=== PATIENT | female | born 1950 | race American Indian/Alaskan Native ===

== ENCOUNTER 2018-01-12 23:21 | Emergency (ER) | payer BC ==
--- NOTE | 2018-01-13 05:01 | Emergency Department Report ---
ED General Adult HPI - General Chief complaint: Urogenital-Female Stated complaint: POSS HBP Time Seen by Provider: 01/13/18 04:55 Source: patient Mode of arrival: Ambulatory Limitations: No Limitations - History of Present Illness Initial comments: Chief complaint, acute stress 67-year-old woman presents with initial complaint of elevated blood pressure as well as a vaginal discharge, but once she was interviewed by myself, describes acute and intensifying situational stress, with multiple family members who are ill and require her care or assistance, which has been a source of worsening stress, causing her to lose sleep, did become agitated, and had difficulty completing her work duties as well. She believes that this has raised her blood pressure, although she has no prior history of hypertension, and takes no routine medication for this or other illnesses. She has no history of chest pain, no tightness, no shortness of breath, no abdominal pain, no nausea or vomiting, no headache, and no focal neurologic deficit. During course of patient's triage while waiting for physician examination, patient became somewhat more confrontational, refusing initial protocol based laboratory evaluation for patient's initial complaint, expressing that she felt that she needed to speak with a physician before she had any medications or laboratory procedures performed. Patient was placed in hallway, where she could be observed, awaiting time where she could be evaluated by myself. At time of my evaluation, patient was resting comfortably, reading from the bottle , no acute distress, and when she was ultimately interviewed, gives history of acute distress, with her impression that she needed time off from work in order for her to get some rest and in order to help make arrangements to enlist other family members to assist in care of ill relatives. When questioned about her complaint of vaginal discharge, she reports that this has ceased, and she declined placement and room or gynecologic evaluation. Past medical history is one of good general health, although she did have a significant allergic reaction several years ago, which required intravenous steroids, which also caused an additional significant reaction, resulting in hospital stay. Other than that, she has been in good general health. - Related Data Allergies Allergy/AdvReac Type Severity Reaction Status Date / Time acetaminophen [From Percocet] Allergy Hives Verified 01/13/18 00:24 codeine Allergy Hives Verified 01/13/18 00:24 Influenza Virus Vaccines Allergy Anaphylaxis Verified 01/13/18 00:24 oxycodone [From Percocet] Allergy Hives Verified 01/13/18 00:24 prednisone Allergy Anaphylaxis Verified 01/13/18 00:24 aspirin AdvReac Hives Verified 01/13/18 00:24 ED Review of Systems ROS: Stated complaint: POSS HBP Other details as noted in HPI Comment: All other systems reviewed and negative Constitutional: malaise. denies: chills, diaphoresis, fever, weakness ENT: denies: throat pain, congestion Respiratory: denies: cough, shortness of breath Cardiovascular: denies: chest pain, dyspnea on exertion, edema, syncope, paroxysmal nocturnal dyspnea Endocrine: no symptoms reported Gastrointestinal: denies: abdominal pain, nausea, diarrhea Genitourinary: denies: urgency, dysuria, frequency Musculoskeletal: denies: back pain, joint swelling, arthralgia Skin: denies: rash, lesions Neurological: denies: headache, weakness, paresthesias Psychiatric: anxiety, other (stress, fatigue, poor sleep). denies: auditory hallucinations, visual hallucinations, suicidal thoughts Hematological/Lymphatic: denies: easy bleeding, easy bruising ED Past Medical Hx - Past Medical History Previous Medical History?: No - Surgical History Past Surgical History?: No Additional Surgical History: ectopic - Social History Smoking Status: Never Smoker Substance Use Type: None ED Physical Exam - General Limitations: No Limitations General appearance: alert, in no apparent distress - Head Head exam: Present: atraumatic, normocephalic - Eye Eye exam: Present: PERRL - ENT ENT exam: Present: mucous membranes moist - Neck Neck exam: Present: normal inspection, full ROM. Absent: tenderness - Respiratory Respiratory exam: Present: normal lung sounds bilaterally - Cardiovascular Cardiovascular Exam: Present: regular rate, normal heart sounds - GI/Abdominal GI/Abdominal exam: Present: soft. Absent: tenderness, guarding - Rectal Rectal exam: Present: deferred - Extremities Exam Extremities exam: Present: normal inspection, full ROM. Absent: tenderness - Back Exam Back exam: Present: normal inspection, full ROM. Absent: tenderness, CVA tenderness (R), CVA tenderness (L), paraspinal tenderness, vertebral tenderness - Neurological Exam Neurological exam: Present: alert, oriented X3, CN II-XII intact, other - Psychiatric Psychiatric exam: Present: agitated (somewhat anxious, reading a Bible and a conspicuous fashion while waiting for examination, particularly as staff passed by). Absent: homicidal ideation, suicidal ideation - Skin Skin exam: Present: warm, dry. Absent: rash, petechiae, pallor, ecchymosis ED Course Vital Signs 01/12/18 01/13/18 23:45 05:05 Temperature 36.9 C Pulse Rate 95 H 85 Respiratory 16 18 Rate Blood Pressure 154/104 Blood Pressure 155/86 [Left] O2 Sat by Pulse 97 100 Oximetry - Reevaluation(s) Reevaluation #1: 01/13/18 05:06 Repeat blood pressure 155/86, patient is resting comfortably, no acute distress , denies acute symptoms. ED Medical Decision Making - EKG Data EKG shows normal: sinus rhythm, axis, intervals (QT interval normal at 426 ms corrected), QRS complexes, ST-T waves Rate: normal (89 bpm) - Medical Decision Making Patient comes with somewhat unorthodox presentation, but primarily has been suffering from undue situational stress, which has been intensifying, causing her to feel that she is unable to carry out her work duties, due to fatigue, stress, and a sense of worsening malaise. I find no acute physical abnormalities, although her blood pressure is mildly elevated, but I don't feel that laboratory testing would be generally beneficial given her stress related symptoms, and she clearly has a normal neurologic evaluation, and CT scanning would not be indicated as well, although these were part of her initial protocol. I'm comfortable giving patient the day off, to allow her to arrangements to offload some of her chores with other family members, and to make arrangements for more suitable working arrangements so that she can have follow-up with her other medical appointment, which has been a concern of hers. 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 Critical Care Time: No Critical care attestation.: If time is entered above; I have spent that time in minutes in the direct care of this critically ill patient, excluding procedure time. ED Disposition Clinical Impression: Adult situational stress disorder Disposition: DC-01 TO HOME OR SELFCARE Is pt being admited?: No Does the pt Need Aspirin: No Condition: Stable Instructions: Stress (ED) Referrals: HAILEY CURRAN MD [Primary Care Provider] - 3-5 Days Forms: Work/School Release Form(ED) Time of Disposition: 05:09
[2018-01-13 05:06] VITALS: BP 155/86
== END 2018-01-13 05:20 | disposition home or self-care (01) ==
LOC: ED 23:21
DX: F43.0 Acute stress reaction (principal); Z88.5 Allergy status to narcotic agent; Z88.6 Allergy status to analgesic agent; Z88.7 Allergy status to serum and vaccine; Z88.8 Allergy status to other drugs, medicaments and biological substances
CPT/HCPCS: 93005; 93010; 99283

== ENCOUNTER 2018-01-13 05:44 | Emergency (ER) | payer BC | END 2018-01-13 05:45 | disposition left against medical advice (07) | LOC: ED 05:44 | DX: Z02.89 Encounter for other administrative examinations (principal); Z53.21 Procedure and treatment not carried out due to patient leaving prior to being seen by health care provider ==

== ENCOUNTER 2018-01-13 12:37 | Emergency (ER) | payer BC ==
[2018-01-13] MEDS ORDERED: ATIVAN PO ONE (12:59)
[2018-01-13] MEDS ORDERED: CATAPRES PO ONE (13:00)
--- NOTE | 2018-01-13 13:41 | Emergency Department Report ---
HPI - General Chief Complaint: Abdominal Pain Time Seen by Provider: 01/13/18 12:58 - HPI HPI: The patient is a 67-year-old female presents for evaluation of abdominal pain and mental health. The patient reports insidious onset of intermittent mild crampy lower abdominal, vaginal itching, and thick white vaginal discharge for the past couple of day. She also shares that she has experienced decreased sleep and decreased appetite for the past 3 days, she submits secondary to family and living stressors at home. She also admits to episode of paranoia last night that someone was following her while out at a restaurant. The patient denies fever, headache, unexplained weight loss or weight gain, heat or cold intolerance, skin, hair, or nail changes, neuro deficits, suicidal ideation , homicidal ideations, or auditory or visual hallucinations. ED Past Medical Hx - Surgical History Additional Surgical History: ectopic - Social History Smoking Status: Never Smoker Substance Use Type: None - Medications Home Medications: Home Medications Medication Instructions Recorded Confirmed Last Taken Type Hydrochlorothiazide [HCTZ] 25 mg PO QDAY #30 tablet 01/13/18 Unknown Rx Miconazole/Cleanser 17 On Wipe 1 each VG QDAY #1 kit 01/13/18 Unknown Rx [Monistat 3 Combo Pack] metroNIDAZOLE [Flagyl] 500 mg PO Q12HR #14 tab 01/13/18 Unknown Rx ED Review of Systems ROS: Stated complaint: AMS Other details as noted in HPI Constitutional: denies: fever ENT: denies: throat or neck pain Respiratory: denies: cough, shortness of breath Cardiovascular: denies: chest pain Endocrine: denies unexplained weight loss or gain Gastrointestinal: reports abdominal pain, nausea Genitourinary: denies: dysuria; reports vaginal discharge Musculoskeletal: denies: leg swelling Skin: denies: rash Neurological: denies: headache Hematological/Lymphatic: denies: easy bleeding or easy bruising Psych: reports worrying and paranoia denies sadness or hopelessness Physical Exam - Physical Exam Vital Signs: BP 143/70 HR 85 RR 16 Pulse ox 97% Physical Exam: General: well-nourished, well-developed, no acute distress Head: Normocephalic, atraumatic Eyes: normal sclera ENT: Mucous membranes are pink and moist Neck: trachea midline, neck supple, No neck stiffness, no cervical adenopathy Respiratory: Breath sounds equal bilaterally, no wheezing, rales, or rhonchi Cardio: S1 and S2 present, no murmurs, rubs, gallops, capillary refill is brisk Abdomen: Normoactive bowel sounds, soft abdomen, no rigidity, no guarding or rebound tenderness Chest WALL/Back: No tenderness to palpation of the chest wall, no CVA tenderness with percussion Musc: No pitting edema Skin: No rash Neuro: Alert and oriented 4, no cognitive deficit, no facial drooping, normal speech, no gross sensation or motor deficits, competent to make medical decisions Psych: Normal affect, normal behavior, normal insight, anxious mood ED Medical Decision Making - Medical Decision Making The patient was seen and examined by myself. The patient is placed on a clinical research monitor and continuous pulse ox. On initial evaluation, the patient was found to be in no distress. Labs are obtained. Urinalysis and urine drug screen are grossly unremarkable. The patient refused blood draw. Mental health is consulted. Mental health attempted to evaluate the patient she refused. The patient was reevaluated by myself and she remains alert oriented 4, able to understand and verbalize family and staff concerns, and negative for signs of risk of harm to herself or others or inability to care for herself. Assess, the patient is competent and able to make medical decisions/refused further medical care or evaluation. The patient is informed of risks of refusal of further care/ stabilization and signing out AGAINST MEDICAL ADVICE, including potential risk of increased morbidity and/or , versus benefits of further treatment and stablization. The patient is informed of treatment options and outside facility options for futher treatment and definitive stablization. The patient is able to verbalize their treatment options and benefits of treatments, versus risks of refusal of further care. The patient is competent to make medical decisions and signed out AGAINST MEDICAL ADVICE. Critical care attestation.: If time is entered above; I have spent that time in minutes in the direct care of this critically ill patient, excluding procedure time. ED Disposition Clinical Impression: Adult situational stress disorder, Acute stress reaction Vaginitis Qualifiers: Chronicity: acute Qualified Code(s): N76.0 - Acute vaginitis Disposition: DC-07 LEFT AGAINST MED ADVICE Is pt being admited?: No Does the pt Need Aspirin: No Condition: Stable Instructions: Bacterial Vaginosis (ED), Vaginitis (ED), Abdominal Pain (ED), Hypertension (ED) Prescriptions: Hydrochlorothiazide [HCTZ] 25 mg PO QDAY #30 tablet metroNIDAZOLE [Flagyl] 500 mg PO Q12HR #14 tab Miconazole/Cleanser 17 On Wipe [Monistat 3 Combo Pack] 1 each VG QDAY #1 kit Referrals: PRIMARY CARE, [Primary Care Provider] - 3-5 Days [facility] [Outside] - [facility] - [facility]5 Days Time of Disposition: 14:25
[2018-01-13 14:00] LABS: Bilirubin,Urine NEG (Negative); Blood,Urine SM (Negative); Color,Urine Yellow (Yellow); Protein,Urine <15 mg/dL mg/dL (Negative); Urobilinogen,Urine < 2.0 mg/dL (<2.0)
[2018-01-13] MEDS ORDERED: FLAGYL PO ONE (14:14)
[2018-01-13 14:24] LABS: Amphetamine Screen,Urine PRESUMPTIVE NEGATIVE; Benzodiazepines Screen,Urine PRESUMPTIVE NEGATIVE; Cannabinoid Screen,Urine PRESUMPTIVE NEGATIVE; Cocaine Screen,Urine PRESUMPTIVE NEGATIVE; Methadone Screen,Urine PRESUMPTIVE NEGATIVE; Opiate Screen,Urine PRESUMPTIVE NEGATIVE
[2018-01-13 14:27] VITALS: BP 143/95
== END 2018-01-13 16:20 | disposition left against medical advice (07) ==
LOC: ED 12:37
DX: F43.0 Acute stress reaction (principal); N76.0 Acute vaginitis
CPT/HCPCS: 80307; 81001; 99284

== ENCOUNTER 2018-01-20 17:01 | Emergency (ER) | payer BC ==
--- NOTE | 2018-01-20 19:58 | Emergency Department Report ---
ED General Adult HPI - General Chief complaint: Psych Stated complaint: DIZZINESS Time Seen by Provider: 01/20/18 18:21 Source: patient Mode of arrival: Ambulatory Limitations: No Limitations - History of Present Illness Initial comments: Patient presents to emergency department for paranoia. Family states the patient is CMP were normal home and calling the police to have him come to investigate. Patient denies suicidal homicidal ideations. Patient was seen here on January 15 [facility] department with follow with her PCP and was told that her blood workup including a thyroid panel was normal. - Related Data Previous Rx's Medication Instructions Recorded Last Taken Type Hydrochlorothiazide [HCTZ] 25 mg PO QDAY #30 tablet 01/13/18 Unknown Rx Miconazole/Cleanser 17 On Wipe 1 each VG QDAY #1 kit 01/13/18 Unknown Rx [Monistat 3 Combo Pack] metroNIDAZOLE [Flagyl] 500 mg PO Q12HR #14 tab 01/13/18 Unknown Rx Allergies Allergy/AdvReac Type Severity Reaction Status Date / Time acetaminophen [From Percocet] Allergy Hives Verified 01/13/18 00:24 codeine Allergy Hives Verified 01/13/18 00:24 Influenza Virus Vaccines Allergy Anaphylaxis Verified 01/13/18 00:24 oxycodone [From Percocet] Allergy Hives Verified 01/13/18 00:24 prednisone Allergy Anaphylaxis Verified 01/13/18 00:24 aspirin AdvReac Hives Verified 01/13/18 00:24 ED Review of Systems ROS: Stated complaint: DIZZINESS Other details as noted in HPI Comment: All other systems reviewed and negative Constitutional: denies: chills, fever Eyes: denies: eye pain, eye discharge, vision change ENT: denies: ear pain, throat pain Respiratory: denies: cough, shortness of breath, wheezing Cardiovascular: denies: chest pain, palpitations Endocrine: no symptoms reported Gastrointestinal: denies: abdominal pain, nausea, diarrhea Genitourinary: denies: urgency, dysuria, discharge Musculoskeletal: denies: back pain, joint swelling, arthralgia Skin: denies: rash, lesions Neurological: denies: headache, weakness, paresthesias Psychiatric: other (paranoia). denies: anxiety, depression Hematological/Lymphatic: denies: easy bleeding, easy bruising ED Past Medical Hx - Past Medical History Hx Hypertension: No Hx CVA: No Hx Heart Attack/AMI: No Hx Congestive Heart Failure: No Hx Diabetes: No Hx Deep Vein Thrombosis: No Hx Pulmonary Embolism: No Hx GERD: No Hx Liver Disease: No Hx Renal Disease: No Hx Sickle Cell Disease: No Hx Arthritis: No Hx Headaches / Migraines: No Hx Seizures: No Hx Kidney Stones: No Hx Psychiatric Treatment: No Hx Asthma: No Hx COPD: No Hx Tuberculosis: No Hx Dementia: No Hx HIV: No Additional medical history: Tubal 1971 - Surgical History Hx Coronary Stent: No Hx Open Heart Surgery: No Hx Pacemaker: No Hx Internal Defibrillator: No Hx Cholecystectomy: No Hx Appendectomy: No Hx Breast Surgery: No Additional Surgical History: ectopic - Social History Smoking Status: Never Smoker Substance Use Type: None - Medications Home Medications: Home Medications Medication Instructions Recorded Confirmed Last Taken Type Hydrochlorothiazide [HCTZ] 25 mg PO QDAY #30 tablet 01/13/18 Unknown Rx Miconazole/Cleanser 17 On Wipe 1 each VG QDAY #1 kit 01/13/18 Unknown Rx [Monistat 3 Combo Pack] metroNIDAZOLE [Flagyl] 500 mg PO Q12HR #14 tab 01/13/18 Unknown Rx ED Physical Exam - General Limitations: No Limitations General appearance: alert, in no apparent distress - Head Head exam: Present: atraumatic, normocephalic - Eye Eye exam: Present: normal appearance - ENT ENT exam: Present: mucous membranes moist - Neck Neck exam: Present: normal inspection - Respiratory Respiratory exam: Present: normal lung sounds bilaterally. Absent: respiratory distress, wheezes, rales - Cardiovascular Cardiovascular Exam: Present: regular rate, normal rhythm. Absent: systolic murmur, diastolic murmur, rubs, gallop - GI/Abdominal GI/Abdominal exam: Present: soft, normal bowel sounds. Absent: distended, tenderness - Extremities Exam Extremities exam: Present: normal inspection - Back Exam Back exam: Present: normal inspection - Neurological Exam Neurological exam: Present: alert, oriented X3, CN II-XII intact. Absent: motor sensory deficit - Psychiatric Psychiatric exam: Present: normal affect, normal mood. Absent: homicidal ideation, suicidal ideation - Skin Skin exam: Present: warm, dry, intact, normal color. Absent: rash ED Course Vital Signs 01/20/18 01/20/18 17:19 17:54 Temperature 98.1 F Pulse Rate 93 H Respiratory 16 18 Rate Blood Pressure 136/80 O2 Sat by Pulse 99 Oximetry ED Medical Decision Making - Medical Decision Making Discussed with patient and need to follow with her psychiatrist and neurologist Critical care attestation.: If time is entered above; I have spent that time in minutes in the direct care of this critically ill patient, excluding procedure time. ED Disposition Clinical Impression: Paranoia Disposition: DC-01 TO HOME OR SELFCARE Is pt being admited?: No Does the pt Need Aspirin: No Condition: Stable Instructions: Paranoid Personality Disorder (ED) Additional Instructions: return if worse Referrals: PRIMARY CAREMD [Primary Care Provider] - 3-5 Days XOCHITL STODDARD MD [Referring] - 3-5 Days Time of Disposition: 19:58
[2018-01-20 20:54] VITALS: BP 139/70
== END 2018-01-20 21:10 | disposition home or self-care (01) ==
LOC: ED 17:01
DX: F22 Delusional disorders (principal); Z88.5 Allergy status to narcotic agent; Z88.6 Allergy status to analgesic agent
CPT/HCPCS: 99282

== ENCOUNTER 2018-03-05 16:24 | Inpatient (IN) | payer BC ==
[2018-03-05] MEDS ORDERED: SUBLIMAZE IV ONE (17:31)
[2018-03-05] MEDS ORDERED: ZOFRAN IV ONE (17:31)
--- NOTE | 2018-03-05 17:34 | Emergency Department Report ---
HPI - General Chief Complaint: Dizziness Time Seen by Provider: 03/05/18 17:16 - HPI HPI: Room 19 The patient is a 67-year-old female presenting with a chief complaint of right- sided weakness and right flank pain. The patient states she's had intermittent weakness of her right side for one year but has not yet seen a neurologist. The patient states she has had no weakness in her right upper extremity continuously for 1 month but states when she awakened this morning at 07:00 the weakness was worse. Patient states she noticed she was dropping things out of her right hand and she has had pain and weakness in the right arm and right leg. She says she developed a headache yesterday and has increased today. Location: [See above] Duration: [See above] Quality: Pain/weakness Severity: Moderate Modifying factors: [see above] Context: [see above] Mode of transportation: [not driving] ED Past Medical Hx - Past Medical History Additional medical history: Tubal 1970 - Surgical History Additional Surgical History: ectopic - Family History Family history: no significant - Social History Smoking Status: Never Smoker Substance Use Type: None (denies illicit drug use) - Medications Home Medications: Home Medications Medication Instructions Recorded Confirmed Last Taken Type Miconazole/Cleanser 17 On Wipe 1 each VG QDAY #1 kit 01/13/18 Unknown Rx [Monistat 3 Combo Pack] hydroCHLOROthiazide [HCTZ] 25 mg PO QDAY #30 tablet 01/13/18 Unknown Rx metroNIDAZOLE [Flagyl] 500 mg PO Q12HR #14 tab 01/13/18 Unknown Rx ED Review of Systems ROS: Stated complaint: PAIN IN BACK/LEG/RECTUM/WEAK Other details as noted in HPI Constitutional: no symptoms reported Eyes: denies: eye pain ENT: denies: throat pain Respiratory: no symptoms reported Cardiovascular: denies: chest pain Endocrine: no symptoms reported Gastrointestinal: denies: abdominal pain Genitourinary: denies: dysuria Musculoskeletal: back pain Neurological: headache, weakness, paresthesias Physical Exam - Physical Exam Vital Signs: Vital Signs 03/05/18 16:52 Temperature 99.2 F Pulse Rate 98 H Respiratory 20 Rate Blood Pressure 170/97 O2 Sat by Pulse 98 Oximetry Physical Exam: GENERAL: The patient is well-developed well-nourished female lying on stretcher not appearing to be in acute distress. [] HEENT: Normocephalic. Atraumatic. Extraocular motions are intact. Patient has moist mucous membranes. NECK: Supple. Trachea midline CHEST/LUNGS: Clear to auscultation. There is no respiratory distress noted. HEART/CARDIOVASCULAR: Regular. There is no tachycardia. There is no gallop rub or murmur. ABDOMEN: Abdomen is soft, nontender. Patient has normal bowel sounds. There is no abdominal distention. SKIN: There is no rash. There is no edema. There is no diaphoresis. NEURO: The patient is awake, alert, and oriented. The patient is cooperative. Cranial nerves II through XII grossly intact with exception of decreased sensation in the right V2 distribution. There is mild right pronator drift. Right human resources benefits coordinator 4+/5. Paresthesia is present of the right upper and lower extremity. The patient has normal speech MUSCULOSKELETAL: There is no evidence of acute injury. ED Course Vital Signs 03/05/18 16:52 Temperature 99.2 F Pulse Rate 98 H Respiratory 20 Rate Blood Pressure 170/97 O2 Sat by Pulse 98 Oximetry ED Medical Decision Making - Lab Data Result diagrams: 03/05/18 17:41 03/05/18 17:41 - EKG Data -: EKG Interpreted by Dc EKG shows normal: sinus rhythm Rate: normal - EKG Data When compared to previous EKG there are: previous EKG unavailable Interpretation: other (no ischemic changes seen) - Radiology Data Radiology results: report reviewed (CT head, CT abdomen and pelvis), image reviewed (CT head, CT abdomen and pelvis) [facility] [address] [place] [address] Cat Scan Report Signed Patient: KENNETH GANNON MR#: [id number] : 1950 Acct:[id number] Age/Sex: 67 / F ADM Date: 03/05/18 Loc: ED Attending Dr: Ordering Physician: ABBY ORTEGA MD Date of Service: 03/05/18 Procedure(s): CT head/brain wo con Accession Number(s): [id number] cc: ABBY ORTEGA MD FINAL REPORT EXAM: CT HEAD/BRAIN WO CON HISTORY: headache, right-sided weakness TECHNIQUE: 2.5 millimeter axial images from the skullbase to the vertex. Comparison: None FINDINGS: There is no CT evidence of an acute intracranial process and no evidence of intracranial hemorrhage or mass effect. The ventricles are normal size. The visualized portions of the orbits, paranasal and mastoid sinuses are unremarkable. The bony structures are unremarkable in appearance. IMPRESSION: 1. No evidence of an acute intracranial process, intracranial hemorrhage or mass effect. If there is a clinical concern for an acute intracranial process, MRI brain may be helpful. Transcribed By: ED Dictated By: FRANCO GALARZA MD Electronically Authenticated By: FRANCO GALARZA MD Signed Date/Time : 03/05/181858 DD/ 58 TD/TT: 03/05/181858 [facility] [address] [place] [address] Cat Scan Report Signed Patient: KENNETH GANNON MR#: [id number] : 1950 Acct:[id number] Age/Sex: 67 / F ADM Date: 03/05/18 Loc: ED Attending Dr: Ordering Physician: ABBY ORTEGA MD Date of Service: 03/05/18 Procedure(s): CT abdomen pelvis wo con Accession Number(s): [id number] cc: ABBY ORTEGA MD FINAL REPORT EXAM: CT ABDOMEN PELVIS WO CON HISTORY: right flank pain TECHNIQUE: Axial helical imaging through the abdomen and pelvis with sagittal and coronal reformatted images obtained. Comparison: None FINDINGS: The lung bases are notable for patchy pulmonary consolidation in the dependent portion of the right lower lobe. Probable atelectasis. However, in the proper clinical setting a small infiltrate would need to be considered. The heart appears to be normal size. There are hypodensities in the right lobe of the liver with Hounsfield units most suggestive of cysts. The larger one measures approximately 2.7 centimeters in size. The smaller one measures approximately 6.4 millimeters in size. The spleen, kidneys and adrenal glands are unremarkable in appearance. There is no evidence of hydronephrosis nor urinary tract calculi. The gallbladder is moderately distended and unremarkable in appearance. There is dilatation of the pancreatic duct throughout the pancreas. The degree of dilatation is greatest at the head of the pancreas and measures approximately 6.6 millimeters in caliber. The common bile duct is normal caliber. The bowel is normal caliber. There is the appearance of a possible duodenal diverticulum There is colonic diverticulosis without radiographic evidence of diverticulitis. The appendix is normal caliber. There is no evidence of pneumoperitoneum or free fluid. There are mildly prominent mesenteric lymph nodes in the right lower quadrant. These are nonspecific in appearance. The largest measures approximately 11 millimeters in the maximal dimension. The urinary bladder is moderately distended and unremarkable in appearance. The uterus and adnexal are notable for evidence of previous tubal ligation. The bony structures are notable for grade 1 anterolisthesis L4 on L5, degenerative facet change in the lumbar spine and evidence of degenerative change of the pubic symphysis. IMPRESSION: 1. No evidence of an acute intra-abdominal process. 2. Abnormal dilatation of the pancreatic duct that is most marked in the head of the pancreas. Further investigation is warranted to evaluate for the presence or absence of an underlying mass in the pancreas. CT of the abdomen utilizing pancreatic protocol or MRI abdomen may be helpful. 3. Possible duodenal diverticulum. 4. Mildly prominent mesenteric lymph nodes in the right lower quadrant that are nonspecific in appearance. Comparison with previous CT abdomen and pelvis is recommended to evaluate for the static or dynamic nature of this finding. An underlying malignancy cannot entirely be excluded. 5. Colonic diverticulosis. 6. Spondylitic change lumbar spine with grade 1 anterolisthesis L4 on L5. Transcribed By: ED Dictated By: FRANCO GALARZA MD Electronically Authenticated By: FRANCO GALARZA MD Signed Date/Time: 03/05/181855 DD/ 55 TD/TT: 03/05/181855 - Differential Diagnosis CVA, rhabdomyolysis, renal colic, rotator cuff injury, Critical care attestation.: If time is entered above; I have spent that time in minutes in the direct care of this critically ill patient, excluding procedure time. ED Disposition Clinical Impression: Right sided weakness, Dilated pancreatic duct Disposition: OP ADMIT IP TO THIS HOSP Is pt being admited?: Yes Does the pt Need Aspirin: Yes Condition: Fair Time of Disposition: 19:17 (hospitalist paged (Dr. Medeiros))
[2018-03-05 17:58] LABS: Basophils % (Auto) 0.4 % (0.0-1.8); Eosinophils % (Auto) 0.1 % (0.0-4.3); Lymphocytes # (Auto) 1.8 K/mm3 (1.2-5.4); Lymphocytes % (Auto) 19.4 % (13.4-35.0); Mean Corpuscular HGB Conc 33 % (30-34); Mean Corpuscular Hemoglobin 31 pg (28-32); Mean Corpuscular Volume 93 fl (79-97); Monocytes # (Auto) 0.7 K/mm3 (0.0-0.8); Monocytes % (Auto) 7.5 % (0.0-7.3); Platelet Count 248 K/mm3 (140-440); Red Blood Count 4.19 M/mm3 (3.65-5.03); Red Cell Distribution Width 14.1 % (13.2-15.2)
[2018-03-05 18:04] LABS: INR 0.92 (0.87-1.13)
[2018-03-05 18:05] LABS: Partial Thromboplastin Time 26.8 Sec. (24.2-36.6)
[2018-03-05 18:12] LABS: Creatine Kinase MB 2.4 ng/mL (0.0-4.0)
[2018-03-05 18:13] LABS: BUN/Creatinine Ratio 13; Blood Urea Nitrogen 9 mg/dL (7-17); Calcium 9.9 mg/dL (8.4-10.2); Hemolysis Index 4
--- NOTE | 2018-03-05 18:58 | Cat Scan Report ---
FINAL REPORT EXAM: CT ABDOMEN PELVIS WO CON HISTORY: right flank pain TECHNIQUE: Axial helical imaging through the abdomen and pelvis with sagittal and coronal reformatted images obtained. Comparison: None FINDINGS: The lung bases are notable for patchy pulmonary consolidation in the dependent portion of the right lower lobe. Probable atelectasis. However, in the proper clinical setting a small infiltrate would need to be considered. The heart appears to be normal size. There are hypodensities in the right lobe of the liver with Hounsfield units most suggestive of cysts. The larger one measures approximately 2.7 centimeters in size. The smaller one measures approximately 6.4 millimeters in size. The spleen, kidneys and adrenal glands are unremarkable in appearance. There is no evidence of hydronephrosis nor urinary tract calculi. The gallbladder is moderately distended and unremarkable in appearance. There is dilatation of the pancreatic duct throughout the pancreas. The degree of dilatation is greatest at the head of the pancreas and measures approximately 6.6 millimeters in caliber. The common bile duct is normal caliber. The bowel is normal caliber. There is the appearance of a possible duodenal diverticulum There is colonic diverticulosis without radiographic evidence of diverticulitis. The appendix is normal caliber. There is no evidence of pneumoperitoneum or free fluid. There are mildly prominent mesenteric lymph nodes in the right lower quadrant. These are nonspecific in appearance. The largest measures approximately 11 millimeters in the maximal dimension. The urinary bladder is moderately distended and unremarkable in appearance. The uterus and adnexal are notable for evidence of previous tubal ligation. The bony structures are notable for grade 1 anterolisthesis L4 on L5, degenerative facet change in the lumbar spine and evidence of degenerative change of the pubic symphysis. IMPRESSION: 1. No evidence of an acute intra-abdominal process. 2. Abnormal dilatation of the pancreatic duct that is most marked in the head of the pancreas. Further investigation is warranted to evaluate for the presence or absence of an underlying mass in the pancreas. CT of the abdomen utilizing pancreatic protocol or MRI abdomen may be helpful. 3. Possible duodenal diverticulum. 4. Mildly prominent mesenteric lymph nodes in the right lower quadrant that are nonspecific in appearance. Comparison with previous CT abdomen and pelvis is recommended to evaluate for the static or dynamic nature of this finding. An underlying malignancy cannot entirely be excluded. 5. Colonic diverticulosis. 6. Spondylitic change lumbar spine with grade 1 anterolisthesis L4 on L5.
--- NOTE | 2018-03-05 19:00 | Cat Scan Report ---
FINAL REPORT EXAM: CT HEAD/BRAIN WO CON HISTORY: headache, right-sided weakness TECHNIQUE: 2.5 millimeter axial images from the skullbase to the vertex. Comparison: None FINDINGS: There is no CT evidence of an acute intracranial process and no evidence of intracranial hemorrhage or mass effect. The ventricles are normal size. The visualized portions of the orbits, paranasal and mastoid sinuses are unremarkable. The bony structures are unremarkable in appearance. IMPRESSION: 1. No evidence of an acute intracranial process, intracranial hemorrhage or mass effect. If there is a clinical concern for an acute intracranial process, MRI brain may be helpful.
[2018-03-05] MEDS ORDERED: PLAVIX PO ONE (19:18)
--- NOTE | 2018-03-05 19:29 | History and Physical Report ---
History of Present Illness Chief complaint: I feel weak on my right side, History of present illness: 67 YO Female with HTN present to ED for evaluation. Pt states that she experienced Right arm and leg weakness upon waking this morning around 0700 hrs. Pt also states that she is unable to hold objects in her right had without dropping them. Pt states that she was seen in the ED on a prior visit and was diagnosed with Bacterial Vaginosis but did not take her prescribed medication at the time. Pt transported to [facility] for care and evaluation. Pt seen and evaluated in ED and found to have symptoms consistent with CVA. Pt Initiated on Stroke protocol, and admitted to telemetry. Pt outside therapeutic window for TPA at time of my evaluation. Pt denies fever, chills, CP, Palpitation, NVD, Trauma, Syncope, or recent ill contacts. Pt acknowledges vaginal discharge that is unchanged since her diagnosis of BV. Past History Past Medical History: hypertension Past Surgical History: No surgical history, Other (reviewed) Social history: single. denies: smoking, alcohol abuse, prescription drug abuse Family history: hypertension Medications and Allergies Allergies Allergy/AdvReac Type Severity Reaction Status Date / Time acetaminophen [From Percocet] Allergy Hives Verified 01/13/18 00:24 aspirin Allergy Hives Verified 03/05/18 19:47 codeine Allergy Hives Verified 01/13/18 00:24 Influenza Virus Vaccines Allergy Anaphylaxis Verified 01/13/18 00:24 oxycodone [From Percocet] Allergy Hives Verified 01/13/18 00:24 prednisone Allergy Anaphylaxis Verified 01/13/18 00:24 Home Medications Medication Instructions Recorded Confirmed Last Taken Type Escitalopram [Lexapro] 5 mg PO DAILY 03/05/18 03/05/18 Unknown History Review of Systems Constitutional: no weight loss, no weight gain, no fever, no chills Ears, nose, mouth and throat: no ear pain, no ear discharge, no tinnitis, no decreased hearing Breasts: no change in shape, no swelling, no mass Cardiovascular: no chest pain, no orthopnea, no palpitations, no rapid/ irregular heart beat, no edema, no syncope Respiratory: no cough, no cough with sputum, no excessive sputum, no hemoptysis , no shortness of breath Gastrointestinal: no abdominal pain, no nausea, no vomiting, no diarrhea, no constipation Genitourinary Female: vaginal discharge, vaginal odor, no pelvic pain, no flank pain, no menorrhagia Rectal: no pain, no incontinence, no bleeding Musculoskeletal: neck stiffness, low back pain, no neck pain, no shooting arm pain, no shooting leg pain, no leg numbness/tingling Integumentary: no rash, no pruritis, no redness, no sores, no wounds Neurological: weakness, numbness, lack of coordination, gait dysfunction, motor disturbance, no head injury, no vertigo, no change in speech, no change in mentation Psychiatric: no anxiety, no memory loss, no change in sleep habits, no sleep disturbances, no insomnia, no hypersomnia Endocrine: no cold intolerance, no heat intolerance, no polyphagia, no excessive thirst, no polydipsia, no polyuria Hematologic/Lymphatic: no easy bruising, no easy bleeding, no lymphadenopathy, no lymphedema Allergic/Immunologic: no urticaria, no allergic rhinitis, no persistent infections Exam - Constitutional Vitals: Temp Pulse Resp BP Pulse Ox 99.2 F 91 H 14 159/95 96 03/05/18 16:52 03/05/18 17:47 03/05/18 17:50 03/05/18 18:06 03/05/18 17:50 General appearance: Present: mild distress - EENT Eyes: Present: PERRL ENT: hearing intact, clear oral mucosa - Neck Neck: Present: supple, normal ROM - Respiratory Respiratory effort: normal Respiratory: bilateral: CTA - Cardiovascular Heart Sounds: Present: S1 & S2. Absent: rub, click - Extremities Extremities: pulses symmetrical, No edema Peripheral Pulses: within normal limits - Abdominal General gastrointestinal: Present: soft, non-tender, non-distended, normal bowel sounds Female genitourinary: Present: normal - Integumentary Integumentary: Present: clear, warm, dry - Musculoskeletal Musculoskeletal: right sided weakness - Psychiatric Psychiatric: appropriate mood/affect, intact judgment & insight - Neurologic Neurologic: CNII-XII intact, moves all extremities Results - Labs CBC & Chem 7: 03/05/18 17:41 03/05/18 17:41 Labs: Abnormal lab results 03/05/18 03/05/18 Range/Units 17:41 17:41 [place] % (Auto) 7.5 H (0.0-7.3) % Seg Neutrophils % 72.6 H (40.0-70.0) % Glucose 106 H (65-100) mg/dL Assessment and Plan CVA: Stroke protocol, MRI Brain, MRA Brain, CT Head, Lipid panel, Statin therpay , Neuro checks, PT/OT/ Speech Therapy, Echo, Carotid Doppler, antiplatelet therapy HTN: Monitor BP q shift, permissive hypertension overnight. BActerial Vaginosis: Initiated Flagyl therpay, Cervical/Lumbar Pain, Chronic: Xray, Cervical and Lumbar Spine, PT consulted, - Patient Problems (1) Right sided weakness Current Visit: Yes Status: Acute Plan to address problem: PT/OT consulted.
[2018-03-05] MEDS ORDERED: REGLAN PO PRN (19:30)
[2018-03-05] MEDS ORDERED: PHENERGAN PR PRN (19:30)
[2018-03-05] MEDS ORDERED: SODIUM CHLORIDE FLUSH SYRINGE 10 ML IV PRN (19:30)
[2018-03-05] MEDS ORDERED: MILK OF MAGNESIA PO PRN (19:30)
[2018-03-05] MEDS ORDERED: PROVENTIL IH PRN (19:30)
[2018-03-05] MEDS ORDERED: DULCOLAX PR PRN (19:30)
[2018-03-05] MEDS ORDERED: TYLENOL PO PRN (19:30)
[2018-03-05] MEDS ORDERED: PLAVIX ONE (20:20)
[2018-03-05] MEDS: ZOFRAN IV PRN (23:58)
[2018-03-06 03:15] LABS: Bilirubin,Urine NEG (Negative); Blood,Urine NEG (Negative); Color,Urine Yellow (Yellow); Hyaline Casts,Urine 1 /LPF; Mucus,Urine FEW /HPF; Protein,Urine <15 mg/dL mg/dL (Negative); Urobilinogen,Urine < 2.0 mg/dL (<2.0)
[2018-03-06 03:19] LABS: RBC,Urine < 1.0 /HPF (0.0-6.0)
[2018-03-06 08:23] LABS: Chol/HDL Ratio 4.19 %
[2018-03-06] MEDS: FLAGYL PO SCH ×3 (09:51→21:13)
[2018-03-06] MEDS ORDERED: ASPIRIN PO SCH (10:00)
--- NOTE | 2018-03-06 11:02 | XRay Report ---
X-RAY NECK SOFT TISSUES 2 VIEWS: 03/06/18 CLINICAL: Pain. FINDINGS: Normal soft tissues and airway. Moderate degenerative disc disease of the cervical spine with multilevel anterior osteophytes. The osteophytes the largest at C4-5 and are large enough to possibly impair swallowing. Multilevel posterior osteophytes the largest at C4-5. No fracture or subluxation. Minimal facet joint disease. IMPRESSION: Moderate degenerative disc disease. Anterior osteophytes at C4-5 are large enough to possibly air swallowing. Normal soft tissues. This
--- NOTE | 2018-03-06 11:10 | XRay Report ---
LUMBOSACRAL SPINE, 3 VIEWS: History: Back pain Findings: The vertebral bodies, disk spaces and posterior elements are intact. No compression deformity or malalignment. Moderate facet arthropathy is identified at L45 and L5-S1. The SI joints are symmetric and unremarkable. Impression: Lumbar spondylosis as described. No evidence for acute injury to the lumbar spine.
--- NOTE | 2018-03-06 15:08 | Magnetic Resonance Report ---
MRI OF THE BRAIN WITHOUT CONTRAST: HISTORY: Stroke PROCEDURE: Multiplanar, multisequence MR imaging of the brain without IV contrast was performed. FINDINGS: There are scattered foci of increased T2 signal in the periventricular and subcortical white matter bilaterally consistent with nonspecific chronic white matter changes. Otherwise, the brain parenchyma signal intensity and its ventura white interface are within normal limits on all sequences. No evidence for acute ischemia, hemorrhage or mass. No chronic infarct or extra-axial fluid collection. The midline structures are central. The basal cisterns are patent. Normal ventricular size. The orbital cavities and sella turcica demonstrate no abnormality. The visualized paranasal sinuses and mastoid air cells are well aerated. IMPRESSION: Mild nonspecific chronic white matter changes. No evidence for stroke, hemorrhage or mass.
--- NOTE | 2018-03-06 15:09 | Magnetic Resonance Report ---
MRA HEAD WITHOUT CONTRAST HISTORY: Stroke. [id number] imaging with MIP reformations of the [place] is submitted. The arteries appear widely patent and free of hemodynamically significant stenosis, aneurysm or dissection. IMPRESSION: Unremarkable MRA head.
[2018-03-06] MEDS: ZOFRAN IV PRN (19:55)
--- NOTE | 2018-03-06 20:02 | Progress Note ---
Assessment and Plan Assessment and plan: --Right-sided weakness; possible CVA Allergic to Aspirin , continue Plavix and statin, not a candidate for TPA Physical therapy occupational therapy rehabilitation Extensive workup so far; negative MRA head; negative MRI head; mild nonspecific chronic white matter changes no evidence of stroke hemorrhage or mass CT head; no acute intracranial abnormality clinical concern for acute intracranial process, follow MRI, MRA negative CT abdomen and pelvis; no acute abnormality abnormal dilated pancreatic duct further evaluation presence or absence of underlying mass in the pancreas CT abdomen pancreatic protocol or MRI abdomen may be helpful, possible duodenal diverticulum, mildly prominent mesenteric lymph nodes underlying malignancy cannot be excluded, Colonic diverticulosis Spondylosis grade 1 L4-L5 --Echocardiogram; LVEF 45-50%, negative contrast bubble study Carotid Doppler; less than 50% stenosis no hemodynamically significant --Hypertension; closely monitor and adjust the management as needed --Dyslipidemia; continue statin --DVT prophylaxis; Lovenox Physical therapy and occupational therapy rehabilitation Possible discharge in 1-2 days if stable History Interval history: Patient was admitted with right-sided weakness Extensive neuro workup was done Patient feels slightly better no new complaints Vital signs reviewed Hospitalist Physical - Constitutional Vitals: Temp Pulse Resp BP Pulse Ox 97.9 F 90 18 157/87 97 03/06/18 17:02 03/06/18 17:02 03/06/18 17:02 03/06/18 17:02 03/06/18 17:02 General appearance: Present: no acute distress, well-nourished, other - EENT Eyes: Present: PERRL, EOM intact - Neck Neck: Present: supple, normal ROM - Respiratory Respiratory effort: normal Respiratory: bilateral: diminished, negative: rales, rhonchi, wheezing - Cardiovascular Rhythm: regular Heart Sounds: Present: S1 & S2 - Extremities Extremities: no ischemia, No edema - Abdominal General gastrointestinal: soft, non-tender, non-distended, normal bowel sounds - Integumentary Integumentary: Present: clear, warm - Psychiatric Psychiatric: appropriate mood/affect - Neurologic Neurologic: moves all extremities Results - Labs CBC & Chem 7: 03/05/18 17:41 03/05/18 17:41 Labs: Laboratory Last Values WBC 9.5 K/mm3 (4.5-11.0) 03/05/18 17:41 RBC 4.19 M/mm3 (3.65-5.03) 03/05/18 17:41 Hgb 13.0 gm/dl (10.1-14.3) 03/05/18 17:41 Hct 39.0 % (30.3-42.9) 03/05/18 17:41 MCV 93 fl (79-97) 03/05/18 17:41 MCH 31 pg (28-32) 03/05/18 17:41 MCHC 33 % (30-34) 03/05/18 17:41 RDW 14.1 % (13.2-15.2) 03/05/18 17:41 Plt Count 248 K/mm3 (140-440) 03/05/18 17:41 Lymph % (Auto) 19.4 % (13.4-35.0) 03/05/18 17:41 [place] % (Auto) 7.5 % (0.0-7.3) H 03/05/18 17:41 Eos % (Auto) 0.1 % (0.0-4.3) 03/05/18 17:41 Baso % (Auto) 0.4 % (0.0-1.8) 03/05/18 17:41 Lymph # 1.8 K/mm3 (1.2-5.4) 03/05/18 17:41 [place] # 0.7 K/mm3 (0.0-0.8) 03/05/18 17:41 Eos # 0.0 K/mm3 (0.0-0.4) 03/05/18 17:41 Baso # 0.0 K/mm3 (0.0-0.1) 03/05/18 17:41 Seg Neutrophils % 72.6 % (40.0-70.0) H 03/05/18 17:41 Seg Neutrophils # 6.9 K/mm3 (1.8-7.7) 03/05/18 17:41 PT 12.8 Sec. (12.2-14.9) 03/05/18 17:41 INR 0.92 (0.87-1.13) 03/05/18 17:41 APTT 26.8 Sec. (24.2-36.6) 03/05/18 17:41 Sodium 142 mmol/L (137-145) 03/05/18 17:41 Potassium 4.0 mmol/L (3.6-5.0) 03/05/18 17:41 Chloride 104.8 mmol/L (98-107) 03/05/18 17:41 Carbon Dioxide 24 mmol/L (22-30) 03/05/18 17:41 Anion Gap 17 mmol/L 03/05/18 17:41 BUN 9 mg/dL (7-17) 03/05/18 17:41 Creatinine 0.7 mg/dL (0.7-1.2) 03/05/18 17:41 Estimated GFR > 60 ml/min 03/05/18 17:41 BUN/Creatinine Ratio 13 % 03/05/18 17:41 Glucose 106 mg/dL (65-100) H 03/05/18 17:41 Calcium 9.9 mg/dL (8.4-10.2) 03/05/18 17:41 Total Creatine Kinase 85 units/L (30-135) 03/05/18 17:41 CK-MB (CK-2) 2.4 ng/mL (0.0-4.0) 03/05/18 17:41 CK-MB (CK-2) Rel Index 2.8 (0-4) 03/05/18 17:41 Troponin T < 0.010 ng/mL (0.00-0.029) 03/05/18 17:41 Triglycerides 80 mg/dL (2-149) 03/06/18 07:13 Cholesterol 239 mg/dL (50-199) H 03/06/18 07:13 LDL Cholesterol Direct 183 mg/dL (50-130) H 03/06/18 07:13 HDL Cholesterol 57 mg/dL (40-59) 03/06/18 07:13 Cholesterol/HDL Ratio 4.19 % 03/06/18 07:13 Urine Color Yellow (Yellow) 03/06/18 03:05 Urine Turbidity Clear (Clear) 03/06/18 03:05 Urine pH 6.0 (5.0-7.0) 03/06/18 03:05 Ur Specific [place] 1.009 (1.003-1.030) 03/06/18 03:05 Urine Protein <15 mg/dl mg/dL (Negative) 03/06/18 03:05 Urine Glucose (UA) Neg mg/dL (Negative) 03/06/18 03:05 Urine Ketones Tr mg/dL (Negative) 03/06/18 03:05 Urine Blood Neg (Negative) 03/06/18 03:05 Urine Nitrite Neg (Negative) 03/06/18 03:05 Urine Bilirubin Neg (Negative) 03/06/18 03:05 Urine Urobilinogen < 2.0 mg/dL (<2.0) 03/06/18 03:05 Ur Leukocyte Esterase Mod (Negative) 03/06/18 03:05 Urine WBC (Auto) 6.0 /HPF (0.0-6.0) 03/06/18 03:05 Urine RBC (Auto) < 1.0 /HPF (0.0-6.0) 03/06/18 03:05 U Epithel Cells (Auto) 1.0 /HPF (0-13.0) 03/06/18 03:05 Hyaline Casts 1 /LPF 03/06/18 03:05 Urine Mucus Few /HPF 03/06/18 03:05
[2018-03-06] MEDS: MOTRIN PO PRN (21:13)
[2018-03-07] MEDS: FLAGYL PO SCH ×3 (05:55→22:08)
[2018-03-07] MEDS: PLAVIX PO SCH (11:02)
--- NOTE | 2018-03-07 13:03 | Discharge Summary ---
Providers - Providers Date of Admission: 03/05/18 19:30 Date of discharge: 03/07/18 Attending physician: YESENIA DIAZ 03/05/18 19:30 Occupational Therapy Evaluate and Treat [CONS] Routine Comment: Reason For Exam: Neuro deficits Physical Therapy Evaluation and Treat [CONS] Routine Comment: Reason For Exam: Neuro deficits 03/05/18 19:31 Speech Therapy Evaluation and Treat [CONS] Routine Reason For Exam: swallow eval Primary care physician: [employer]END[employer] Hospitalization Condition: Fair Disposition: DC-01 TO HOME OR SELFCARE Time spent for discharge: 32 min Core Measure Documentation - Palliative Care Palliative Care/ Comfort Measures: Not Applicable - Core Measures Any of the following diagnoses?: none Exam - Constitutional Vitals: Temp Pulse Resp BP Pulse Ox 98.6 F 97 H 20 152/89 98 03/07/18 11:50 03/07/18 11:50 03/07/18 11:50 03/07/18 11:50 03/07/18 11:50 General appearance: Present: no acute distress, well-nourished - EENT Eyes: Present: PERRL, EOM intact - Neck Neck: Present: supple, normal ROM - Respiratory Respiratory effort: normal Respiratory: bilateral: diminished, negative: rales, rhonchi, wheezing - Cardiovascular Rhythm: regular Heart Sounds: Present: S1 & S2 - Extremities Extremities: no ischemia, No edema Peripheral Pulses: within normal limits - Abdominal General gastrointestinal: Present: soft, non-tender, non-distended - Integumentary Integumentary: Present: clear, warm - Musculoskeletal Musculoskeletal: strength equal bilaterally - Psychiatric Psychiatric: appropriate mood/affect, cooperative - Neurologic Neurologic: CNII-XII intact, moves all extremities Plan Activity: no restrictions Diet: low cholesterol, low salt Additional Instructions: Follow private psychologist/psychiatrist as per scheduled. If you notice any bleeding, stop Plavix and contact M.D. Follow up with: GLENN RUIZ MD [Primary Care Provider] - 3-5 Days PRIYA GASCA MD [Staff Physician] - 7 Days Prescriptions: AtorvaSTATin [Lipitor] 40 mg PO QHS #30 tablet Clopidogrel [Plavix] 75 mg PO QDAY #30 tablet
--- NOTE | 2018-03-07 13:38 | Progress Note ---
Assessment and Plan Assessment and plan: --Right-sided weakness; possible CVA Allergic to Aspirin , continue Plavix and statin, not a candidate for TPA Physical therapy occupational therapy rehabilitation Extensive workup so far; negative MRA head; negative MRI head; mild nonspecific chronic white matter changes no evidence of stroke hemorrhage or mass CT head; no acute intracranial abnormality clinical concern for acute intracranial process, follow MRI, MRA negative CT abdomen and pelvis; no acute abnormality abnormal dilated pancreatic duct further evaluation presence or absence of underlying mass in the pancreas CT abdomen pancreatic protocol or MRI abdomen may be helpful, possible duodenal diverticulum, mildly prominent mesenteric lymph nodes underlying malignancy cannot be excluded, Colonic diverticulosis Spondylosis grade 1 L4-L5 --Echocardiogram; LVEF 45-50%, negative contrast bubble study Carotid Doppler; less than 50% stenosis no hemodynamically significant --Hypertension; closely monitor and adjust the management as needed --Dyslipidemia; continue statin --DVT prophylaxis; Lovenox Physical therapy and occupational therapy rehabilitation Possible discharge in 1-2 days if stable History Interval history: Patient Seen and examined medical records reviewed Complaints of difficulty swallowing Speech therapy evaluated, recommend modified barium swallow Has multiple abnormal findings on CT abdomen and pelvis Neuro workup is negative Alert awake oriented 3 Vital signs reviewed Hospitalist Physical - Constitutional Vitals: Temp Pulse Resp BP Pulse Ox 98.6 F 97 H 20 152/89 98 03/07/18 11:50 03/07/18 11:50 03/07/18 11:50 03/07/18 11:50 03/07/18 11:50 General appearance: Present: no acute distress, well-nourished - EENT Eyes: Present: PERRL, EOM intact - Neck Neck: Present: supple, normal ROM - Respiratory Respiratory effort: normal Respiratory: bilateral: diminished, negative: rales, rhonchi, wheezing - Cardiovascular Rhythm: regular Heart Sounds: Present: S1 & S2 - Extremities Extremities: no ischemia, No edema - Abdominal General gastrointestinal: soft, non-tender, non-distended, normal bowel sounds - Integumentary Integumentary: Present: clear, warm - Psychiatric Psychiatric: appropriate mood/affect, cooperative - Neurologic Neurologic: CNII-XII intact, moves all extremities Results - Labs CBC & Chem 7: 03/05/18 17:41 03/05/18 17:41 Labs: Laboratory Last Values WBC 9.5 K/mm3 (4.5-11.0) 03/05/18 17:41 RBC 4.19 M/mm3 (3.65-5.03) 03/05/18 17:41 Hgb 13.0 gm/dl (10.1-14.3) 03/05/18 17:41 Hct 39.0 % (30.3-42.9) 03/05/18 17:41 MCV 93 fl (79-97) 03/05/18 17:41 MCH 31 pg (28-32) 03/05/18 17:41 MCHC 33 % (30-34) 03/05/18 17:41 RDW 14.1 % (13.2-15.2) 03/05/18 17:41 Plt Count 248 K/mm3 (140-440) 03/05/18 17:41 Lymph % (Auto) 19.4 % (13.4-35.0) 03/05/18 17:41 [place] % (Auto) 7.5 % (0.0-7.3) H 03/05/18 17:41 Eos % (Auto) 0.1 % (0.0-4.3) 03/05/18 17:41 Baso % (Auto) 0.4 % (0.0-1.8) 03/05/18 17:41 Lymph # 1.8 K/mm3 (1.2-5.4) 03/05/18 17:41 [place] # 0.7 K/mm3 (0.0-0.8) 03/05/18 17:41 Eos # 0.0 K/mm3 (0.0-0.4) 03/05/18 17:41 Baso # 0.0 K/mm3 (0.0-0.1) 03/05/18 17:41 Seg Neutrophils % 72.6 % (40.0-70.0) H 03/05/18 17:41 Seg Neutrophils # 6.9 K/mm3 (1.8-7.7) 03/05/18 17:41 PT 12.8 Sec. (12.2-14.9) 03/05/18 17:41 INR 0.92 (0.87-1.13) 03/05/18 17:41 APTT 26.8 Sec. (24.2-36.6) 03/05/18 17:41 Sodium 142 mmol/L (137-145) 03/05/18 17:41 Potassium 4.0 mmol/L (3.6-5.0) 03/05/18 17:41 Chloride 104.8 mmol/L (98-107) 03/05/18 17:41 Carbon Dioxide 24 mmol/L (22-30) 03/05/18 17:41 Anion Gap 17 mmol/L 03/05/18 17:41 BUN 9 mg/dL (7-17) 03/05/18 17:41 Creatinine 0.7 mg/dL (0.7-1.2) 03/05/18 17:41 Estimated GFR > 60 ml/min 03/05/18 17:41 BUN/Creatinine Ratio 13 % 03/05/18 17:41 Glucose 106 mg/dL (65-100) H 03/05/18 17:41 Calcium 9.9 mg/dL (8.4-10.2) 03/05/18 17:41 Total Creatine Kinase 85 units/L (30-135) 03/05/18 17:41 CK-MB (CK-2) 2.4 ng/mL (0.0-4.0) 03/05/18 17:41 CK-MB (CK-2) Rel Index 2.8 (0-4) 03/05/18 17:41 Troponin T < 0.010 ng/mL (0.00-0.029) 03/05/18 17:41 Triglycerides 80 mg/dL (2-149) 03/06/18 07:13 Cholesterol 239 mg/dL (50-199) H 03/06/18 07:13 LDL Cholesterol Direct 183 mg/dL (50-130) H 03/06/18 07:13 HDL Cholesterol 57 mg/dL (40-59) 03/06/18 07:13 Cholesterol/HDL Ratio 4.19 % 03/06/18 07:13 Urine Color Yellow (Yellow) 03/06/18 03:05 Urine Turbidity Clear (Clear) 03/06/18 03:05 Urine pH 6.0 (5.0-7.0) 03/06/18 03:05 Ur Specific [place] 1.009 (1.003-1.030) 03/06/18 03:05 Urine Protein <15 mg/dl mg/dL (Negative) 03/06/18 03:05 Urine Glucose (UA) Neg mg/dL (Negative) 03/06/18 03:05 Urine Ketones Tr mg/dL (Negative) 03/06/18 03:05 Urine Blood Neg (Negative) 03/06/18 03:05 Urine Nitrite Neg (Negative) 03/06/18 03:05 Urine Bilirubin Neg (Negative) 03/06/18 03:05 Urine Urobilinogen < 2.0 mg/dL (<2.0) 03/06/18 03:05 Ur Leukocyte Esterase Mod (Negative) 03/06/18 03:05 Urine WBC (Auto) 6.0 /HPF (0.0-6.0) 03/06/18 03:05 Urine RBC (Auto) < 1.0 /HPF (0.0-6.0) 03/06/18 03:05 U Epithel Cells (Auto) 1.0 /HPF (0-13.0) 03/06/18 03:05 Hyaline Casts 1 /LPF 03/06/18 03:05 Urine Mucus Few /HPF 03/06/18 03:05
--- NOTE | 2018-03-07 15:54 | Gastroenterology Consultation ---
History of Present Illness - Reason for Consult Consult date: 03/07/18 rectal bleeding/dilated pancreatic duct Requesting physician: YESENIA DIAZ - History of Present Illness Patient is a 67 y/o female with PMH of HTN who was admitted for right-sided weakness/possible CVA. Head MRI/CT negative. Carotid doppler showed <50% stenosis. CT abdomen showed no acute abnormality but did reveal abnormal dilated pancreatic duct. She was started on plavix due to aspirin allergy and had an episode of rectal bleeding to which GI has also been consulted. Plavix on hold. This afternoon patient was resting in bed w/o acute distress. She reports an episode of rectal bleeding with a small amount of bright red blood in toilet and on TP following a BM on Tuesday that required straining. No further active signs of bleeding. No hematemesis or melena. No rectal pain or trauma. Denies fever, wt loss, CP, SOB, abd pain, N/V, jaundice, diarrhea, or constipation. She is previously known to our service and followed by Dr. Tang. She has a hx of hemorrhoids with intermittent rectal bleeding for the past several years with recommendations in 2016 for possible banding based on progress if no improvement with conservative management/hemorrhoid cream. Last colonoscopy in 2014. Patient is also currently being evaluated by speech s/p acosta protocol with pt c/o regurgitation and globus sensation but no evidence of aspiration. Barium swallow is pending. No odynophagia. No previous EGD. Past History Past Medical History: hypertension Past Surgical History: No surgical history, Other (reviewed) Social history: single. denies: smoking, alcohol abuse, prescription drug abuse Family history: hypertension Medications and Allergies Allergies Allergy/AdvReac Type Severity Reaction Status Date / Time acetaminophen [From Percocet] Allergy Hives Verified 01/13/18 00:24 aspirin Allergy Hives Verified 03/05/18 19:47 codeine Allergy Hives Verified 01/13/18 00:24 Influenza Virus Vaccines Allergy Anaphylaxis Verified 01/13/18 00:24 oxycodone [From Percocet] Allergy Hives Verified 01/13/18 00:24 prednisone Allergy Anaphylaxis Verified 01/13/18 00:24 Home Medications Medication Instructions Recorded Confirmed Last Taken Type Escitalopram [Lexapro] 5 mg PO DAILY 03/05/18 03/05/18 Unknown History AtorvaSTATin [Lipitor] 40 mg PO QHS #30 tablet 03/07/18 Unknown Rx Clopidogrel [Plavix] 75 mg PO QDAY #30 tablet 03/07/18 Unknown Rx Active Meds: Active Medications Albuterol (Proventil) 2.5 mg IH Q3HRT PRN PRN Reason: Shortness Of Breath Atorvastatin Calcium (Lipitor) 40 mg PO QHS [facility] Last Admin: 03/06/18 21:13 Dose: 40 mg Bisacodyl (Dulcolax) 10 mg MA QDAY PRN PRN Reason: Constipation Clopidogrel Bisulfate (Plavix) 75 mg PO QDAY [facility] Last Admin: 03/07/18 11:02 Dose: 75 mg Ibuprofen (Motrin) 800 mg PO Q8H PRN PRN Reason: Pain, Mild (1-3) Last Admin: 03/06/18 21:13 Dose: 800 mg Magnesium Hydroxide (Milk Of Magnesia) 30 ml PO Q4H PRN PRN Reason: Constipation Metoclopramide HCl (Reglan) 10 mg PO Q6H PRN PRN Reason: Nausea And Vomiting Metronidazole (Flagyl) 500 mg PO Q8HR [facility]; Protocol Stop: 03/09/18 23:59 Last Admin: 03/07/18 13:13 Dose: 500 mg Ondansetron HCl (Zofran) 4 mg IV Q8H PRN PRN Reason: Nausea And Vomiting Last Admin: 03/06/18 19:55 Dose: 4 mg Promethazine HCl (Phenergan) 25 mg MA Q6H PRN PRN Reason: Nausea And Vomiting Sodium Chloride (Sodium Chloride Flush Syringe 10 Ml) 10 ml IV PRN PRN PRN Reason: LINE FLUSH Review of Systems - Review of Systems All systems: negative Gastrointestinal: BRBPR, other (globus sensation, regurgitation) Exam - Constitutional Vital Signs: Temp Pulse Resp BP Pulse Ox 98.5 F 101 H 20 138/74 96 03/07/18 15:38 03/07/18 15:38 03/07/18 15:38 03/07/18 15:38 03/07/18 15:38 General appearance: no acute distress - Respiratory Respiratory: bilateral: CTA - Cardiovascular Rhythm: regular Heart Sounds: Present: S1 & S2 - Gastrointestinal General gastrointestinal: Present: soft, non-tender, non-distended, normal bowel sounds - Neurologic Neurological: alert and oriented x3 - Labs CBC & Chem 7: 03/05/18 17:41 03/05/18 17:41 Assessment and Plan 1.rectal bleeding -H/H WNL (13.0/39.0) -continue to monitor H/H and transfuse as needed -patient with hx of intermittent rectal bleeding for years 2/2 hemorrhoids who had 1 episode of rectal bleeding 2 days ago following a BM w/straining -no active signs of bleeding x 2 days -last colonoscopy in 2014 revealed diverticulosis and hemorrhoids -etiology- most likely due to hemorrhoids -no clinical evidence of significant GI bleeding -no plans for colonoscopy at this time unless overt bleeding develops -okay to resume anticoagulation as needed -continue supportive care 2.dilated pancreatic duct -Abd CT showed dilation of pancreatic duct -will order MRI for further evaluation -CMP in am 3.globus sensation -neck X-ray showed moderate degenerative disc disease and anterior osteophytes at C4-5 are large enough to possibly air swallowing -patient c/o regurgitation but is currently tolerating diet -[employer] eval in progress with barium swallow pending -start on PPI -consider EGD based on progress
[2018-03-07] MEDS: PROTONIX IV SCH (17:15)
[2018-03-07] MEDS: MOTRIN PO PRN (22:11)
[2018-03-08 06:24] LABS: Basophils # (Auto) 0.1 K/mm3 (0.0-0.1); Basophils % (Auto) 0.6 % (0.0-1.8); Eosinophils # (Auto) 0.1 K/mm3 (0.0-0.4); Eosinophils % (Auto) 0.6 % (0.0-4.3); Hematocrit 38.4 % (30.3-42.9); Hemoglobin 12.7 gm/dl (10.1-14.3); Lymphocytes # (Auto) 3.1 K/mm3 (1.2-5.4); Lymphocytes % (Auto) 34.8 % (13.4-35.0); Mean Corpuscular HGB Conc 33 % (30-34); Mean Corpuscular Hemoglobin 31 pg (28-32); Mean Corpuscular Volume 93 fl (79-97); Monocytes # (Auto) 0.8 K/mm3 (0.0-0.8); Monocytes % (Auto) 8.5 % (0.0-7.3); Platelet Count 268 K/mm3 (140-440); Red Blood Count 4.11 M/mm3 (3.65-5.03); Red Cell Distribution Width 14.8 % (13.2-15.2)
[2018-03-08] MEDS: FLAGYL PO SCH ×3 (06:25→23:13)
[2018-03-08 07:02] LABS: Alanine Aminotransferase 16 units/L (7-56); Albumin 4.2 g/dL (3.9-5); BUN/Creatinine Ratio 15; Blood Urea Nitrogen 12 mg/dL (7-17); Calcium 9.5 mg/dL (8.4-10.2); Hemolysis Index 3
[2018-03-08] MEDS: PROTONIX IV SCH (12:07)
[2018-03-08] MEDS: PLAVIX PO SCH (12:07)
[2018-03-08] MEDS: ZOFRAN IV PRN (12:08)
--- NOTE | 2018-03-08 13:31 | Gastroenterology Progress Note ---
Assessment and Plan 1.rectal bleeding -H/H WNL -continue to monitor H/H and transfuse as needed -very minor rectal bleeding c/w hemorrhoidal -last colonoscopy in 2014 revealed diverticulosis and hemorrhoids -no plans for colonoscopy at this time -recommend outpatient f/u with possible banding when able to come off Plavix -recommend stool softener to prevent constipation -continue supportive care -okya to continue plavix per GI standpoint 2.dilated pancreatic duct -LFTs WNL -Abd CT showed dilation of pancreatic duct -MRI pending for further evaluation 3.globus sensation -neck X-ray showed moderate degenerative disc disease and anterior osteophytes at C4-5 are large enough to possibly air swallowing -clinically, patient still has irritation in throat but is tolerating diet -barium swallow with pill pending -consider EGD based on results -continue PPI and supportive care -will follow Subjective Date of service: 03/08/18 Principal diagnosis: rectal bleeding/dilated pancreatic duct Interval history: Patient resting in bed w/o acute distress. Reports BM x 1 today with scant amount of blood on TP. Denies abd pain or N/V. Still has irritated sensation in throat but is tolerating diet. Objective - Constitutional Vitals: Temp Pulse Resp BP Pulse Ox 98.8 F 94 H 20 136/75 98 03/08/18 05:44 03/08/18 05:44 03/08/18 05:44 03/08/18 05:44 03/08/18 05:44 General appearance: no acute distress - Respiratory Respiratory: bilateral: CTA - Cardiovascular Rhythm: regular Heart Sounds: Present: S1 & S2 - Gastrointestinal General gastrointestinal: Present: soft, non-tender, non-distended, normal bowel sounds - Neurologic Neurological: alert and oriented x3 - Labs CBC & Chem 7: 03/08/18 05:50 03/08/18 05:50 Labs: Laboratory Results - last 24 hr 03/08/18 03/08/18 05:50 05:50 WBC 8.9 RBC 4.11 Hgb 12.7 Hct 38.4 MCV 93 MCH 31 MCHC 33 RDW 14.8 Plt Count 268 Lymph % (Auto) 34.8 [place] % (Auto) 8.5 H Eos % (Auto) 0.6 Baso % (Auto) 0.6 Lymph # 3.1 [place] # 0.8 Eos # 0.1 Baso # 0.1 Seg Neutrophils % 55.5 Seg Neutrophils # 5.0 Sodium 141 Potassium 4.0 Chloride 104.1 Carbon Dioxide 24 Anion Gap 17 BUN 12 Creatinine 0.8 Estimated GFR > 60 BUN/Creatinine Ratio 15 Glucose 95 Calcium 9.5 Magnesium 2.10 Total Bilirubin 0.40 AST 18 ALT 16 Alkaline Phosphatase 47 Total Protein 6.7 Albumin 4.2 Albumin/Globulin Ratio 1.7
--- NOTE | 2018-03-08 19:53 | Progress Note ---
Assessment and Plan Assessment and plan: --Dilated pancreatic duct on CT abdomen and pelvis; GI following , follow MRI abdomen --Rectal bleeding; GI following, closely monitor H&H and transfuse as needed No active bleeding at this point --Right-sided weakness; possible CVA Allergic to Aspirin , continue Plavix and statin, not a candidate for TPA Physical therapy occupational therapy rehabilitation Extensive workup so far; negative MRA head; negative MRI head; mild nonspecific chronic white matter changes no evidence of stroke hemorrhage or mass CT head; no acute intracranial abnormality clinical concern for acute intracranial process, follow MRI, MRA negative Echocardiogram; LVEF 45-50%, negative contrast bubble study Carotid Doppler; less than 50% stenosis no hemodynamically significant --Hypertension; closely monitor and adjust the management as needed --Dyslipidemia; continue statin --DVT prophylaxis; Lovenox Physical therapy and occupational therapy rehabilitation Possible discharge in 1-2 days if stable History Interval history: Patient seen and examined medical records reviewed No new events reported by the nursing staff Underwent modified barium swallow GI recommended MRI Alert awake Oriented 3 vital signs reviewed Hospitalist Physical - Constitutional Vitals: Temp Pulse Resp BP Pulse Ox 98.8 F 94 H 20 136/75 98 03/08/18 05:44 03/08/18 05:44 03/08/18 05:44 03/08/18 05:44 03/08/18 05:44 General appearance: Present: no acute distress, well-nourished - EENT Eyes: Present: PERRL, EOM intact - Neck Neck: Present: supple, normal ROM - Respiratory Respiratory effort: normal Respiratory: bilateral: diminished, negative: rales, rhonchi, wheezing - Cardiovascular Rhythm: regular Heart Sounds: Present: S1 & S2 - Extremities Extremities: no ischemia, No edema - Abdominal General gastrointestinal: soft, non-tender, non-distended, normal bowel sounds - Integumentary Integumentary: Present: clear, warm - Psychiatric Psychiatric: appropriate mood/affect, cooperative - Neurologic Neurologic: CNII-XII intact, moves all extremities Results - Labs CBC & Chem 7: 03/08/18 05:50 03/08/18 05:50 Labs: Laboratory Last Values WBC 8.9 K/mm3 (4.5-11.0) 03/08/18 05:50 RBC 4.11 M/mm3 (3.65-5.03) 03/08/18 05:50 Hgb 12.7 gm/dl (10.1-14.3) 03/08/18 05:50 Hct 38.4 % (30.3-42.9) 03/08/18 05:50 MCV 93 fl (79-97) 03/08/18 05:50 MCH 31 pg (28-32) 03/08/18 05:50 MCHC 33 % (30-34) 03/08/18 05:50 RDW 14.8 % (13.2-15.2) 03/08/18 05:50 Plt Count 268 K/mm3 (140-440) 03/08/18 05:50 Lymph % (Auto) 34.8 % (13.4-35.0) 03/08/18 05:50 [place] % (Auto) 8.5 % (0.0-7.3) H 03/08/18 05:50 Eos % (Auto) 0.6 % (0.0-4.3) 03/08/18 05:50 Baso % (Auto) 0.6 % (0.0-1.8) 03/08/18 05:50 Lymph # 3.1 K/mm3 (1.2-5.4) 03/08/18 05:50 [place] # 0.8 K/mm3 (0.0-0.8) 03/08/18 05:50 Eos # 0.1 K/mm3 (0.0-0.4) 03/08/18 05:50 Baso # 0.1 K/mm3 (0.0-0.1) 03/08/18 05:50 Seg Neutrophils % 55.5 % (40.0-70.0) 03/08/18 05:50 Seg Neutrophils # 5.0 K/mm3 (1.8-7.7) 03/08/18 05:50 PT 12.8 Sec. (12.2-14.9) 03/05/18 17:41 INR 0.92 (0.87-1.13) 03/05/18 17:41 APTT 26.8 Sec. (24.2-36.6) 03/05/18 17:41 Sodium 141 mmol/L (137-145) 03/08/18 05:50 Potassium 4.0 mmol/L (3.6-5.0) 03/08/18 05:50 Chloride 104.1 mmol/L (98-107) 03/08/18 05:50 Carbon Dioxide 24 mmol/L (22-30) 03/08/18 05:50 Anion Gap 17 mmol/L 03/08/18 05:50 BUN 12 mg/dL (7-17) 03/08/18 05:50 Creatinine 0.8 mg/dL (0.7-1.2) 03/08/18 05:50 Estimated GFR > 60 ml/min 03/08/18 05:50 BUN/Creatinine Ratio 15 % 03/08/18 05:50 Glucose 95 mg/dL (65-100) 03/08/18 05:50 Calcium 9.5 mg/dL (8.4-10.2) 03/08/18 05:50 Magnesium 2.10 mg/dL (1.7-2.3) 03/08/18 05:50 Total Bilirubin 0.40 mg/dL (0.1-1.2) 03/08/18 05:50 AST 18 units/L (5-40) 03/08/18 05:50 ALT 16 units/L (7-56) 03/08/18 05:50 Alkaline Phosphatase 47 units/L (35-129) 03/08/18 05:50 Total Creatine Kinase 85 units/L (30-135) 03/05/18 17:41 CK-MB (CK-2) 2.4 ng/mL (0.0-4.0) 03/05/18 17:41 CK-MB (CK-2) Rel Index 2.8 (0-4) 03/05/18 17:41 Troponin T < 0.010 ng/mL (0.00-0.029) 03/05/18 17:41 Total Protein 6.7 g/dL (6.3-8.2) 03/08/18 05:50 Albumin 4.2 g/dL (3.9-5) 03/08/18 05:50 Albumin/Globulin Ratio 1.7 % 03/08/18 05:50 Triglycerides 80 mg/dL (2-149) 03/06/18 07:13 Cholesterol 239 mg/dL (50-199) H 03/06/18 07:13 LDL Cholesterol Direct 183 mg/dL (50-130) H 03/06/18 07:13 HDL Cholesterol 57 mg/dL (40-59) 03/06/18 07:13 Cholesterol/HDL Ratio 4.19 % 03/06/18 07:13 Urine Color Yellow (Yellow) 03/06/18 03:05 Urine Turbidity Clear (Clear) 03/06/18 03:05 Urine pH 6.0 (5.0-7.0) 03/06/18 03:05 Ur Specific [place] 1.009 (1.003-1.030) 03/06/18 03:05 Urine Protein <15 mg/dl mg/dL (Negative) 03/06/18 03:05 Urine Glucose (UA) Neg mg/dL (Negative) 03/06/18 03:05 Urine Ketones Tr mg/dL (Negative) 03/06/18 03:05 Urine Blood Neg (Negative) 03/06/18 03:05 Urine Nitrite Neg (Negative) 03/06/18 03:05 Urine Bilirubin Neg (Negative) 03/06/18 03:05 Urine Urobilinogen < 2.0 mg/dL (<2.0) 03/06/18 03:05 Ur Leukocyte Esterase Mod (Negative) 03/06/18 03:05 Urine WBC (Auto) 6.0 /HPF (0.0-6.0) 03/06/18 03:05 Urine RBC (Auto) < 1.0 /HPF (0.0-6.0) 03/06/18 03:05 U Epithel Cells (Auto) 1.0 /HPF (0-13.0) 03/06/18 03:05 Hyaline Casts 1 /LPF 03/06/18 03:05 Urine Mucus Few /HPF 03/06/18 03:05
[2018-03-09] MEDS: FLAGYL PO SCH ×2 (05:59→15:23)
--- NOTE | 2018-03-09 09:31 | Fluoroscopy Report ---
BARIUM SWALLOW: History: Globus sensation, dysphagia. 23 fluoroscopic images were captured. The patient swallows barium without difficulty demonstrating normal coordination. The cervical and thoracic portions of the esophagus demonstrate normal contours and there is normal peristalsis. There is no evidence of a hiatus hernia and no reflux is demonstrated. The patient was able to ingest the barium tablet without difficulty. IMPRESSION: Normal study.
[2018-03-09] MEDS: PROTONIX IV SCH (10:40)
[2018-03-09] MEDS: PLAVIX PO SCH (10:41)
[2018-03-09 11:02] VITALS: BP 156/83
--- NOTE | 2018-03-09 13:50 | Gastroenterology Progress Note ---
Assessment and Plan 1.rectal bleeding -H/H WNL -continue to monitor H/H and transfuse as needed -very minor rectal bleeding c/w hemorrhoidal -last colonoscopy in 2014 revealed diverticulosis and hemorrhoids -no plans for colonoscopy at this time -recommend outpatient f/u with possible banding when able to come off Plavix -recommend stool softener to prevent constipation -continue supportive care -okay to continue plavix per GI standpoint 2.dilated pancreatic duct -LFTs WNL -Abd CT showed dilation of pancreatic duct -No sure when MRI will be done-Can be done as an outpatient 3.globus sensation -neck X-ray showed moderate degenerative disc disease and anterior osteophytes at C4-5 are large enough to possibly air swallowing -barium swallow with pill with normal results -tolerating diet -continue PPI -if symptoms persist, consider EGD as an outpatient once able to come off Plavix -continue supportive care -patient okay to be d/c per GI standpoint with clinic follow -will sign off, please call if needed Subjective Date of service: 03/09/18 Principal diagnosis: rectal bleeding/dilated pancreatic duct Interval history: No acute distress or events overnight. Reports feeling better today. Denies abd pain, N/V, or signs of bleeding. Objective - Constitutional Vitals: Temp Pulse Resp BP Pulse Ox 98.0 F 81 20 156/83 97 03/09/18 08:00 03/09/18 08:00 03/09/18 08:00 03/09/18 08:00 03/09/18 08:00 General appearance: no acute distress - Respiratory Respiratory: bilateral: CTA - Cardiovascular Rhythm: regular Heart Sounds: Present: S1 & S2 - Gastrointestinal General gastrointestinal: Present: soft, non-tender, non-distended, normal bowel sounds - Neurologic Neurological: alert and oriented x3 - Labs CBC & Chem 7: 03/08/18 05:50 03/08/18 05:50
--- NOTE | 2018-03-09 15:21 | Discharge Summary ---
Providers - Providers Date of Admission: 03/05/18 19:30 Date of discharge: 03/09/18 Attending physician: YESENIA DIAZ 03/05/18 19:30 Occupational Therapy Evaluate and Treat [CONS] Routine Comment: Reason For Exam: Neuro deficits Physical Therapy Evaluation and Treat [CONS] Routine Comment: Reason For Exam: Neuro deficits 03/05/18 19:31 Speech Therapy Evaluation and Treat [CONS] Routine Reason For Exam: swallow eval 03/07/18 13:32 Consult to Physician [CONS] Routine Comment: Consulting Provider: PRIYA GASCA Physician Instructions: Reason For Exam: rectal bleeding intermittent/Dial pancreatic duct Primary care physician: CLOCK SMITH Hospitalization Reason for admission: right-sided weakness/rectal bleeding Condition: Fair Pertinent studies: CT abdomen and pelvis; no evidence of acute intra-abdominal process Abnormal dietitian of pancreatic duct[recommend MRI] Possible duodenal diverticulum Prominent mesenteric lymph nodes right lower quadrant nonspecific Colonic diverticulosis Spondylitis changes lumbar spine grade 1 and 2 anterior listhesis L4-L5 Barium swallow; normal study Lumbar spine x-ray; lumbar spondylosis, no acute findings and they want Soft tissue neck x-ray; moderate degenerative disc disease, anterior osteophytes at C4 5 large enough to possibly impaired swallowing, normal soft tissue CVA workup so far; negative MRA head; negative MRI head; mild nonspecific chronic white matter changes no evidence of stroke hemorrhage or mass CT head; no acute intracranial abnormality clinical concern for acute intracranial process, follow MRI, MRA negative Echocardiogram; LVEF 45-50%, negative contrast bubble study Carotid Doppler; less than 50% stenosis no hemodynamically significant Hospital course: Very pleasant 67-year-old female patient with history of hypertension was admitted through emergency room with right-sided weakness Patient was not a candidate for TPA , symptomatically managed, aspirin and statin started, stroke protocol was initiated Had extensive neuro workup which was negative as mentioned above Patient also had abdominal pain and difficulty swallowing GI has evaluated the patient CT abdomen is findings consistent with dilated pancreatic duct, and multiple mesenteric nodes GI evaluation the patient, patient was seen by swallow speech therapy, made him swallow is within normal limits Initially GI ordered MRI of the abdomen to evaluate dilated pancreatic duct However patient's symptoms significantly improved, MRI had technical problems could not be done immediately Patient is cleared for discharge and follow up with them in the office And advised outpatient MRA study Today she is comfortable no new complaints vital signs stable Physical examination prior to discharge is unremarkable Advised to follow-up with GI for further evaluation and management Discharge diagnosis; --Dilated pancreatic duct on CT abdomen and pelvis; patient MRI follow-up GI --Rectal bleeding; f/u GI resolved --Right-sided weakness; possible CVA workup negative --Possible TIA --Hypertension; stable --Dyslipidemia; continue statin Disposition: DC-01 TO HOME OR SELFCARE Time spent for discharge: 32 min Core Measure Documentation - Palliative Care Palliative Care/ Comfort Measures: Not Applicable - Core Measures Any of the following diagnoses?: none Exam - Constitutional Vitals: Temp Pulse Resp BP Pulse Ox 98.0 F 81 20 156/83 97 03/09/18 08:00 03/09/18 08:00 03/09/18 08:00 03/09/18 08:00 03/09/18 08:00 General appearance: Present: no acute distress, well-nourished - EENT Eyes: Present: PERRL, EOM intact - Neck Neck: Present: supple, normal ROM - Respiratory Respiratory effort: normal Respiratory: negative: rales, rhonchi, wheezing - Cardiovascular Rhythm: regular Heart Sounds: Present: S1 & S2 - Extremities Extremities: no ischemia, No edema - Abdominal General gastrointestinal: Present: soft, non-tender, non-distended, normal bowel sounds - Integumentary Integumentary: Present: clear, warm - Musculoskeletal Musculoskeletal: strength equal bilaterally - Psychiatric Psychiatric: appropriate mood/affect, cooperative - Neurologic Neurologic: CNII-XII intact, moves all extremities Plan Activity: no restrictions Diet: low cholesterol, low salt Additional Instructions: If you notice any rectal bleeding, contact M.D. or go to emergency room. Low-salt low-cholesterol Diet as tolerated Follow up with: PRIYA GASCA MD [Staff Physician] - 7 Days PRIMARY CARE, [Primary Care Provider] - 3-5 Days Prescriptions: AtorvaSTATin [Lipitor] 40 mg PO QHS #30 tablet Clopidogrel [Plavix] 75 mg PO QDAY #30 tablet Pantoprazole [Protonix] 40 mg PO QDAY #30 tablet
--- NOTE | 2018-03-09 17:28 | Vascular Lab Report ---
CAROTID DUPLEX STUDY: RIGHT PSVEDV CCA [id number] CCA [id number] ICA PROX:[id number] ICA MID:[id number] ICA DIST:[id number] ECA: [id number] VERT: 66 20 LEFT PSVEDV CCA [id number] CCA DIST:[id number] ICA PROX:[id number] ICA MID:[id number] ICA DIST:[id number] ECA: [id number] VERT: 61 12 REASON FOR EXAM: Stroke. COMMENTS ON THE RIGHT: Doppler frequency analysis is consistent with 16 to 49 percent diameter reduction of the internal carotid artery. Minimal amount of plaque is seen. The common carotid artery is patent. The external carotid artery is patent. The vertebral artery has antegrade flow. COMMENTS ON THE LEFT: Doppler frequency analysis is consistent with 16 to 49 percent diameter reduction of the internal carotid artery. Minimal amount of plaque is seen. The common carotid artery is patent. The external carotid artery is patent. The vertebral artery has antegrade flow. IMPRESSION: Less than 50% diameter reduction in the internal carotid arteries bilaterally.
== END 2018-03-09 17:43 | disposition home or self-care (01) | DRG 394 ==
LOC: ED 16:24 → 4A 19:30
PROVIDERS: ADMIT Internal Medicine; ATTEND Internal Medicine
DX: K64.9 Unspecified hemorrhoids (principal); G45.9 Transient cerebral ischemic attack, unspecified; N76.0 Acute vaginitis; K86.89 Other specified diseases of pancreas; I10 Essential (primary) hypertension; E78.5 Hyperlipidemia, unspecified; Z82.49 Family history of ischemic heart disease and other diseases of the circulatory system; Z88.6 Allergy status to analgesic agent; Z88.5 Allergy status to narcotic agent; Z79.899 Other long term (current) drug therapy; R53.1 Weakness
CPT/HCPCS: 36415; 70360; 70450; 70544; 70551; 72100; 74176; 74220; 80048; 80053; 80061; 81001; 82550; 82553; 83735; 84484; 85025; 85610; 85730; 93005; 93010; 93306; 93880; 96374; 96375; A9270-GY; C9113; G8978-GP; G8980-GP; J2405; J3010

== ENCOUNTER 2018-08-31 09:49 | Outpatient (CLI) | payer BC ==
--- NOTE | 2018-08-31 12:18 | Ultrasound Report ---
ULTRASOUND ABDOMEN COMPLETE: TECHNIQUE: Transabdominal ultrasound with color Doppler interrogation. HISTORY: abdominal pain. COMPARISON: none. FINDINGS: LIVER: The liver is normal size, contour and echotexture. A 2.5 cm cyst is noted in the right hepatic lobe. BILIARY SYSTEM: No evidence for cholelithiasis. The gallbladder is within normal limits. CBD is slightly prominent measuring 6.3 mm. No evidence for choledocholithiasis on ultrasound. PANCREAS: Normal. SPLEEN: Normal. KIDNEYS: Normal. AORTA/IVC: Normal. ASCITES: None. IMPRESSION: Liver cyst. Slightly prominent common bile duct measuring 6.3 mm. No evidence for gallstones or choledocholithiasis.
== END 2018-08-31 09:50 | disposition home or self-care (01) ==
LOC: US 09:49
PROVIDERS: ATTEND Internal Medicine
DX: K76.89 Other specified diseases of liver (principal)
CPT/HCPCS: 76700

== ENCOUNTER 2019-11-16 15:09 | Outpatient (CLI) | payer BC ==
[2019-11-16 16:02] LABS: Basophils % (Auto) 0.5 % (0.0-1.8); Eosinophils % (Auto) 0.4 % (0.0-4.3); Hematocrit 39.2 % (30.3-42.9); Hemoglobin 12.9 gm/dl (10.1-14.3); Lymphocytes # (Auto) 2.3 K/mm3 (1.2-5.4); Lymphocytes % (Auto) 30.6 % (13.4-35.0); Mean Corpuscular HGB Conc 33 % (30-34); Mean Corpuscular Volume 93 fl (79-97); Monocytes # (Auto) 0.4 K/mm3 (0.0-0.8); Platelet Count 229 K/mm3 (140-440); Red Blood Count 4.23 M/mm3 (3.65-5.03); Red Cell Distribution Width 13.5 % (13.2-15.2)
[2019-11-16 16:17] LABS: Alanine Aminotransferase 20 units/L (7-56); Albumin 4.7 g/dL (3.9-5); BUN/Creatinine Ratio 19; Blood Urea Nitrogen 15 mg/dL (7-17); Calcium 10.1 mg/dL (8.4-10.2); Chol/HDL Ratio 4.97 %; HDL Cholesterol 49 mg/dL (40-59); Hemolysis Index 3; LDL Cholesterol,Direct 169 mg/dL (50-130)
[2019-11-16 16:25] LABS: Free T4 (Free Thyroxine) 0.87 ng/dL (0.76-1.46)
== END 2019-11-16 15:10 | disposition home or self-care (01) ==
LOC: LAB 15:09
PROVIDERS: ATTEND Psychiatry & Neurology Psychiatry
DX: F31.73 Bipolar disorder, in partial remission, most recent episode manic (principal); F41.9 Anxiety disorder, unspecified; Z79.899 Other long term (current) drug therapy
CPT/HCPCS: 36415; 80053; 80061; 83036; 84146; 84439; 84443; 85025